=== PATIENT | male | born 1975 | race Caucasian/White ===

== ENCOUNTER 2017-06-02 00:26 | Emergency (ER) | payer OTHER ==
[2017-06-02] VITALS (8 sets, daily range): BP systolic 112–140; BP diastolic 61–80; PULSE 47–78; RESP 14–18; TEMP 98.8; O2SAT 96–99
[~2017-06-02] VITALS: Ht 165.1 cm; Wt 80.0 kg
[2017-06-02] MEDS ORDERED: HALOPERIDOL LACTATE 5 MG/ML AMP IM ONE (01:30)
[2017-06-02] MEDS ORDERED: LORazepam 2 MG/ML VIAL IM ONE (01:30)
--- NOTE | 2017-06-02 02:04 | PD ---
HPI Chief Complaint: Alcohol/Drug Intoxication Time Seen by Provider: 01:56 Travel History International Travel<30 days: No Contact w/Intl Traveler<30days: No Traveled to known affect area: No History of Present Illness HPI 41-year-old white male presents to emergency department under [place] act by PD. The patient was found wandering the streets intoxicated this evening. The patient had contacted police regarding questionable missing people. The patient here is uncooperative with staff. He is attempting to leave. He is heavily intoxicated. The patient has to be restrained. The patient's place nonviolent restraints. He is medicated with Haldol 5 mg IM and 2 mg of Ativan. The patient is heavily intoxicated in the history is unobtainable. FOR[facility]LY [facility] Past Medical History Medical History: Unable to Obtain Immunizations Current: Yes Tetanus Vaccination: Unknown Past Surgical History Surgical History: Unable to Obtain Other Surgery: Yes (PENIS) Social History Alcohol Use: Yes Tobacco Use: Yes Substance Use: No Allergies-Medications (Allergen,Severity, Reaction): Coded Allergies: No Known Allergies (Unverified , 06/02/17) Reported Meds & Prescriptions Reported Meds & Active Scripts Active No Active Prescriptions or Reported Medications Review of Systems ROS Limitations: Intoxication Physical Exam Narrative GENERAL: Well-nourished, well-developed patient. No evidence of trauma. He is handling his secretions well. SKIN: Warm and dry. HEAD: Normocephalic and atraumatic. EYES: No scleral icterus. No injection or drainage. ENT: No nasal drainage noted. Mucous membranes pink. Airway patent. NECK: Supple, trachea midline. Moves head freely without obvious discomfort. CARDIOVASCULAR: Regular rate and rhythm without murmurs, gallops, or rubs. RESPIRATORY: Breath sounds equal bilaterally. No accessory muscle use. GASTROINTESTINAL: Abdomen soft, non-tender, nondistended. EXTREMITIES: No cyanosis or edema. BACK: Nontender without obvious deformity. No CVA tenderness. NEURO: Patient is alert and oriented to person. no sensorimotor deficits. Nonfocal. Slurred speech. Data Data Last Documented VS Vital Signs Date Time Temp Pulse Resp B/P (MAP) Pulse Ox O2 Delivery O2 Flow Rate FiO2 06/02/17 03:51 63 18 112/61 (78) 97 Room Air 06/02/17 00:51 98.8 Orders Orders Haloperidol Inj (Haldol Inj) (06/02/17 01:30) Lorazepam Inj (Ativan Inj) (06/02/17 01:30) Restraints Non-Violent CEZAR.Q3H (06/02/17 01:30) Blood Glucose (06/02/17 01:30) [facility] Medical Decision Making Medical Screen Exam Complete: Yes Emergency Medical Condition: Yes Medical Record Reviewed: Yes Differential Diagnosis Differential diagnoses: Alcohol intoxication, substance abuse, electrolyte abnormality, malingering Narrative Course The patient has to be placed in a nonviolent restraints due to his inability to cooperate, follow commands and his attempts to leave the facility. The patient is medicated with Haldol 5 mg IM and Ativan 2 mg IM. Once the patient becomes more compliant and cooperative he will be taken out of restraints. Once the patient exhibits sobriety is [place] act will be lifted. The patient will be monitored until then. This is alcohol intoxication Diagnosis Primary Impression: Alcohol intoxication Qualified Codes: F10.920 - Alcohol use, unspecified with intoxication, uncomplicated Patient Instructions: General Instructions Additional Instructions: Rest. Increase fluids. Avoid alcohol. Avoid illegal substances. Follow-up with [facility] for detox. Do not operate a car or any heavy machinery under the influence of alcohol or drugs. Follow-up with a medical doctor this week. Return to the ER for emergencies Med/Other Pt SpecificInfo: No Meds Exist/No RX given Scripts No Active Prescriptions or Reported Meds Disposition: 01 DISCHARGE HOME Condition: Stable Philip Simmons Jun 02, 2017 02:04
== END 2017-06-02 11:59 | disposition home or self-care (01) ==
LOC: NEPD 00:26
DX: F10.920 Alcohol use, unspecified with intoxication, uncomplicated (principal)
CPT/HCPCS: 96372; 99285; J1630; J2060